=== PATIENT | male | born 1940 | race Caucasian/White ===

== ENCOUNTER 2018-12-13 14:09 | Inpatient (IN) ==
[2018-12-13 14:29] LABS: Hematocrit 27.1 % (37.5-50.1); Hemoglobin 8.2 g/dL (12.9-16.9); Mean Corpuscular HGB Conc 30.3 g/dL (31.6-35.5); Mean Corpuscular Volume 76.1 fL (83.0-100.0); Mean Platelet Volume 9.5 fL (9.4-12.4); Platelet Count 239 K/mcL (140-400); Red Blood Count 3.56 M/mcL (4.19-5.50); Red Cell Distribution Width 20.3 % (11.5-14.5); White Blood Count 16.8 K/mcL (4.3-11.1)
[2018-12-13 14:36] LABS: INR 1.4; Prothrombin Time 15.6 Seconds (9.4-12.1)
[2018-12-13 14:39] LABS: Activated Partial Thrombo Time 36.8 Seconds (26.0-36.0)
[2018-12-13 14:46] LABS: BUN/Creatinine Ratio 24 (6-26); Blood Urea Nitrogen 25 mg/dL (8-23); Calcium 8.4 mg/dL (8.6-10.3); Carbon Dioxide 24 mEq/L (23-29); Chloride 107 mEq/L (98-107); Glucose 112 mg/dL (70-105); Osmolality,Calculated 287 (280-300); Potassium 3.8 mEq/L (3.5-5.1); Sodium 136 mEq/L (136-145); eGFR For African Americans > 60 (> 60); eGFR For Non-African Americans > 60 (> 60)
[2018-12-13 14:47] LABS: Troponin I 0.03 ng/mL (< 0.04)
[2018-12-13] MEDS ORDERED: 0.9 % Sodium Chloride 1,000 ML IVC ONE (15:05)
[2018-12-13] MEDS ORDERED: Aspirin 81 MG TAB.CHEW PO ONE (15:05)
[2018-12-13] MEDS ORDERED: Isovue-370 500 ML BOTTLE IVP ONE (15:16)
[2018-12-13] MEDS ORDERED: Azithromycin 500 MG in 0.9 % Sodium Chloride 250 ML IVPB ONE (16:46)
[2018-12-13] MEDS ORDERED: Piperacillin/Tazobactam 3.375 GM in Water for inj. (sterile) 20 ML IVP ONE (16:46)
[2018-12-13 17:14] LABS: Bilirubin,Urine Negative (Negative); Blood,Urine Large (Negative); Clarity,Urine Clear (Clear); Color,Urine Yellow (Yellow); Glucose,Urine (UA) Normal (Normal); Ketones,Urine Negative (Negative); Leukocyte Esterase,Urine Moderate (Negative); Nitrite,Urine Negative (Negative); Protein,Urine Negative (Neg-Trace); Specific Gravity,Urine 1.029 (1.010-1.025); Urobilinogen,Urine Normal (Normal)
[2018-12-13 17:16] LABS: Hyaline Casts,Urine None Seen per lpf (None-Few); RBC,Urine TNTC per hpf (0-3); Squamous Epithelial Cell,Urine Many per lpf (None-Few)
[2018-12-13 17:27] LABS: Bacteria,Urine Few per hpf (None-Few); Renal Epithelial Cells,Urine Few per hpf (None-Few)
[2018-12-13] MEDS ORDERED: cefTRIAXone 1,000 MG in Water for inj. (sterile) 10 ML IVP ONE (17:27)
[2018-12-13] MEDS ORDERED: Ondansetron 4 MG/2 ML VIAL IVP PRN (18:26)
[2018-12-13] MEDS ORDERED: Naloxone 0.4 MG/ML INJ IVP PRN (18:26)
[2018-12-13] MEDS ORDERED: diazePAM 10 MG/2 ML SYRINGE IVP STA ×2 (18:43→18:57)
[2018-12-13] MEDS ORDERED: diazePAM 10 MG/2 ML SYRINGE ONE (18:46)
[2018-12-13] MEDS ORDERED: Baclofen 10 MG TABLET PO ONE (19:22)
[2018-12-13] MEDS: Baclofen 10 MG TABLET PO SCH (21:07)
[2018-12-13] MEDS: Apixaban 2.5 MG TABLET PO SCH (21:07)
[2018-12-13] MEDS: Pregabalin 75 MG CAPSULE PO SCH (21:07)
[2018-12-13] MEDS: Fluticasone Propionate Nasal 50 MCG/SPRAY BOTTLE NS SCH (21:09)
[2018-12-13] MEDS: tiZANidine 4 MG TABLET PO SCH (21:17)
[2018-12-13] MEDS: 0.9 % Sodium Chloride 1,000 ML IVC SCH (21:17)
[2018-12-14] MEDS: Baclofen 10 MG TABLET PO SCH ×5 (00:10→23:59)
[2018-12-14] MEDS: Piperacillin/Tazobactam 3.375 GM in 0.9 % Sodium Chloride Mini Bag 100 ML IVPB SCH ×4 (00:11→23:59)
[2018-12-14] MEDS: tiZANidine 4 MG TABLET PO SCH ×3 (05:17→16:47)
[2018-12-14 06:53] LABS: Adenovirus Not Detected (Not Detect); Bordetella Pertussis Not Detected (Not Detect); Chlamydophila pneumoniae Not Detected (Not Detect); Coronavirus 229E Not Detected (Not Detect); Coronavirus HKU1 Not Detected (Not Detect); Coronavirus NL63 Not Detected (Not Detect); Coronavirus OC43 Not Detected (Not Detect); Human Metapneumovirus Not Detected (Not Detect); Human Rhinovirus/Enterovirus Not Detected (Not Detect); Influenza A Subtype 2009 H1 Not Detected (Not Detect); Influenza A Untypeable Not Detected (Not Detect); Influenza B Not Detected (Not Detect); Mycoplasma pneumoniae Not Detected (Not Detect); Parainfluenza Virus 1 Not Detected (Not Detect); Parainfluenza Virus 2 Not Detected (Not Detect); Parainfluenza Virus 3 Not Detected (Not Detect); Parainfluenza Virus 4 Not Detected (Not Detect); Respiratory Syncytial Virus Not Detected (Not Detect)
[2018-12-14 07:12] LABS: Basophils % 0.2 %; Eosinophils % 0.2 %; Hematocrit 24.6 % (37.5-50.1); Hemoglobin 7.5 g/dL (12.9-16.9); Immature Granulocytes % 0.6 % (0-4); Lymphocytes # 0.7 K/mcL (0.6-4.6); Lymphocytes % 8.8 %; Mean Corpuscular HGB Conc 30.5 g/dL (31.6-35.5); Mean Corpuscular Hemoglobin 23.4 pg (28.0-33.3); Mean Corpuscular Volume 76.6 fL (83.0-100.0); Mean Platelet Volume 10.4 fL (9.4-12.4); Monocytes # 0.5 K/mcL (0.0-1.3); Monocytes % 6.2 %; Neutrophils # 7.1 K/mcL (1.6-8.9); Platelet Count 203 K/mcL (140-400); Red Blood Count 3.21 M/mcL (4.19-5.50); Red Cell Distribution Width 20.5 % (11.5-14.5)
[2018-12-14 07:30] LABS: BUN/Creatinine Ratio 24 (6-26); Blood Urea Nitrogen 20 mg/dL (8-23); Carbon Dioxide 24 mEq/L (23-29); Chloride 109 mEq/L (98-107); Glucose 84 mg/dL (70-105); Osmolality,Calculated 292 (280-300); Potassium 3.3 mEq/L (3.5-5.1); Sodium 140 mEq/L (136-145); eGFR For African Americans > 60 (> 60); eGFR For Non-African Americans > 60 (> 60)
[2018-12-14 07:32] LABS: White Blood Count 8.4 K/mcL (4.3-11.1)
[2018-12-14] MEDS: Simethicone 80 MG TAB.CHEW PO SCH ×3 (08:15→16:47)
[2018-12-14] MEDS: Apixaban 2.5 MG TABLET PO SCH ×2 (08:16→20:06)
[2018-12-14] MEDS: Sennosides 8.6 MG TABLET PO SCH (08:16)
[2018-12-14] MEDS: Loratadine 10 MG TABLET PO SCH (08:16)
[2018-12-14] MEDS: diazePAM 5 MG TABLET PO SCH (08:17)
[2018-12-14] MEDS: Pregabalin 75 MG CAPSULE PO SCH ×2 (08:18→20:06)
[2018-12-14] MEDS: cefTRIAXone 1,000 MG in Water for inj. (sterile) 10 ML IVP SCH (08:19)
[2018-12-14] MEDS: Bisacodyl 10 MG RECTAL SUPPOSITORY RC SCH (08:20)
[2018-12-14] MEDS: Fluticasone Propionate Nasal 50 MCG/SPRAY BOTTLE NS SCH ×2 (08:21→20:07)
[2018-12-14] MEDS: 0.9 % Sodium Chloride 1,000 ML IVC SCH (12:15)
[2018-12-14] MEDS ORDERED: Azithromycin 500 MG in 0.9 % Sodium Chloride 250 ML IVPB SCH (18:00)
[2018-12-14] MEDS: Acetaminophen 325 MG TABLET PO PRN (23:02)
[2018-12-15 05:08] LABS: Basophils % 0.3 %; Eosinophils # 0.2 K/mcL (0.0-0.6); Eosinophils % 2.6 %; Hematocrit 25.4 % (37.5-50.1); Hemoglobin 7.7 g/dL (12.9-16.9); Immature Granulocytes % 0.3 % (0-4); Lymphocytes # 1.4 K/mcL (0.6-4.6); Lymphocytes % 23.1 %; Mean Corpuscular HGB Conc 30.3 g/dL (31.6-35.5); Mean Corpuscular Hemoglobin 23.3 pg (28.0-33.3); Mean Corpuscular Volume 76.7 fL (83.0-100.0); Mean Platelet Volume 10.5 fL (9.4-12.4); Monocytes # 0.6 K/mcL (0.0-1.3); Monocytes % 10.2 %; Neutrophils # 3.9 K/mcL (1.6-8.9); Platelet Count 234 K/mcL (140-400); Red Blood Count 3.31 M/mcL (4.19-5.50); Red Cell Distribution Width 20.4 % (11.5-14.5); Segmented Neutrophils % 63.5 %; White Blood Count 6.2 K/mcL (4.3-11.1)
[2018-12-15 05:31] LABS: BUN/Creatinine Ratio 22 (6-26); Blood Urea Nitrogen 20 mg/dL (8-23); Calcium 8.2 mg/dL (8.6-10.3); Carbon Dioxide 21 mEq/L (23-29); Chloride 113 mEq/L (98-107); Glucose 85 mg/dL (70-105); Osmolality,Calculated 296 (280-300); Potassium 3.6 mEq/L (3.5-5.1); Sodium 142 mEq/L (136-145); eGFR For African Americans > 60 (> 60); eGFR For Non-African Americans > 60 (> 60)
[2018-12-15 05:38] LABS: Anisocytosis 1+ (Not Present); Hypochromasia Present (Not Present); Microcytosis Present (Not Present); Platelet Estimate Normal (Normal)
[2018-12-15] MEDS: Baclofen 10 MG TABLET PO SCH ×4 (05:38→23:32)
[2018-12-15] MEDS: tiZANidine 4 MG TABLET PO SCH ×2 (05:39→13:14)
[2018-12-15] MEDS: Piperacillin/Tazobactam 3.375 GM in 0.9 % Sodium Chloride Mini Bag 100 ML IVPB SCH (08:43)
[2018-12-15] MEDS: Simethicone 80 MG TAB.CHEW PO SCH ×3 (08:43→16:42)
[2018-12-15] MEDS: Fluticasone Propionate Nasal 50 MCG/SPRAY BOTTLE NS SCH (08:44)
[2018-12-15] MEDS: Bisacodyl 10 MG RECTAL SUPPOSITORY RC SCH (08:44)
[2018-12-15] MEDS: cefTRIAXone 1,000 MG in Water for inj. (sterile) 10 ML IVP SCH (08:44)
[2018-12-15] MEDS: Pregabalin 75 MG CAPSULE PO SCH ×2 (08:44→23:32)
[2018-12-15] MEDS: Apixaban 2.5 MG TABLET PO SCH ×2 (08:44→23:33)
[2018-12-15] MEDS: Loratadine 10 MG TABLET PO SCH (08:44)
[2018-12-15] MEDS: diazePAM 5 MG TABLET PO SCH (08:45)
[2018-12-15] MEDS: Sennosides 8.6 MG TABLET PO SCH (08:45)
[2018-12-15] MEDS: Acetaminophen 325 MG TABLET PO PRN (08:46)
[2018-12-15] MEDS ORDERED: Aminoglycoside Consult 1 EACH MC ONE (08:58)
[2018-12-15] MEDS: levoFLOXacin 750 MG/150 ML 750 MG/150 ML BAG IVPB SCH (11:25)
[2018-12-15] MEDS: Doxycycline 100 MG in 0.9 % Sodium Chloride Mini Bag 100 ML IVPB SCH (16:42)
[2018-12-15] MEDS ORDERED: diazePAM 2 MG TABLET PO SCH (21:00)
[2018-12-15] MEDS ORDERED: tiZANidine 4 MG TABLET PO SCH (21:00)
[2018-12-16] MEDS: Acetaminophen 325 MG TABLET PO PRN ×2 (03:29→21:10)
[2018-12-16] MEDS ORDERED: *HR* HYDROcodone/Acet 7.5/325 mg TABLET PO ONE (03:52)
[2018-12-16] MEDS: diazePAM 2 MG TABLET PO SCH ×2 (04:24→21:11)
[2018-12-16 06:27] LABS: Basophils % 0.5 %; Eosinophils # 0.2 K/mcL (0.0-0.6); Eosinophils % 3.2 %; Hematocrit 26.7 % (37.5-50.1); Immature Granulocytes % 0.4 % (0-4); Lymphocytes # 1.6 K/mcL (0.6-4.6); Lymphocytes % 28.2 %; Mean Corpuscular Hemoglobin 22.8 pg (28.0-33.3); Mean Corpuscular Volume 76.1 fL (83.0-100.0); Mean Platelet Volume 10.2 fL (9.4-12.4); Monocytes # 0.5 K/mcL (0.0-1.3); Monocytes % 8.5 %; Neutrophils # 3.3 K/mcL (1.6-8.9); Platelet Count 251 K/mcL (140-400); Red Blood Count 3.51 M/mcL (4.19-5.50); Red Cell Distribution Width 20.6 % (11.5-14.5); Segmented Neutrophils % 59.2 %; White Blood Count 5.6 K/mcL (4.3-11.1)
[2018-12-16] MEDS: Fluticasone Propionate Nasal 50 MCG/SPRAY BOTTLE NS SCH ×3 (06:28→21:20)
[2018-12-16] MEDS: Baclofen 10 MG TABLET PO SCH ×3 (06:37→17:38)
[2018-12-16] MEDS: Doxycycline 100 MG in 0.9 % Sodium Chloride Mini Bag 100 ML IVPB SCH ×2 (06:37→17:38)
[2018-12-16 06:47] LABS: BUN/Creatinine Ratio 17 (6-26); Blood Urea Nitrogen 14 mg/dL (8-23); Calcium 8.5 mg/dL (8.6-10.3); Carbon Dioxide 23 mEq/L (23-29); Chloride 110 mEq/L (98-107); Glucose 90 mg/dL (70-105); Osmolality,Calculated 296 (280-300); Sodium 143 mEq/L (136-145); eGFR For African Americans > 60 (> 60); eGFR For Non-African Americans > 60 (> 60)
[2018-12-16] MEDS: Bisacodyl 10 MG RECTAL SUPPOSITORY RC SCH (08:32)
[2018-12-16] MEDS: Sennosides 8.6 MG TABLET PO SCH (08:32)
[2018-12-16] MEDS: Loratadine 10 MG TABLET PO SCH (08:33)
[2018-12-16] MEDS: Simethicone 80 MG TAB.CHEW PO SCH ×3 (08:39→17:38)
[2018-12-16] MEDS: Apixaban 2.5 MG TABLET PO SCH ×2 (08:39→21:11)
[2018-12-16] MEDS: levoFLOXacin 750 MG/150 ML 750 MG/150 ML BAG IVPB SCH (08:39)
[2018-12-16] MEDS: Pregabalin 75 MG CAPSULE PO SCH ×2 (08:40→21:09)
[2018-12-16] MEDS ORDERED: cefTRIAXone 1,000 MG in 0.9 % Sodium Chloride Mini Bag 100 ML IVPB SCH (09:00)
[2018-12-17] MEDS: Latanoprost 2.5 ML BOTTLE BOTH EYES SCH ×2 (00:17→20:48)
[2018-12-17] MEDS: Baclofen 10 MG TABLET PO SCH ×5 (00:18→23:11)
[2018-12-17] MEDS: Doxycycline 100 MG in 0.9 % Sodium Chloride Mini Bag 100 ML IVPB SCH (05:41)
[2018-12-17 06:19] LABS: Basophils % 0.6 %; Eosinophils # 0.2 K/mcL (0.0-0.6); Eosinophils % 3.2 %; Hemoglobin 8.3 g/dL (12.9-16.9); Immature Granulocytes % 1.6 % (0-4); Lymphocytes # 1.9 K/mcL (0.6-4.6); Lymphocytes % 38.3 %; Mean Corpuscular HGB Conc 30.7 g/dL (31.6-35.5); Mean Corpuscular Volume 74.8 fL (83.0-100.0); Mean Platelet Volume 9.9 fL (9.4-12.4); Monocytes # 0.5 K/mcL (0.0-1.3); Monocytes % 9.1 %; Neutrophils # 2.4 K/mcL (1.6-8.9); Platelet Count 264 K/mcL (140-400); Red Blood Count 3.61 M/mcL (4.19-5.50); Red Cell Distribution Width 19.9 % (11.5-14.5); Segmented Neutrophils % 47.2 %; White Blood Count 5.1 K/mcL (4.3-11.1)
[2018-12-17 06:37] LABS: BUN/Creatinine Ratio 16 (6-26); Blood Urea Nitrogen 16 mg/dL (8-23); Calcium 8.9 mg/dL (8.6-10.3); Carbon Dioxide 23 mEq/L (23-29); Chloride 110 mEq/L (98-107); Glucose 94 mg/dL (70-105); Osmolality,Calculated 295 (280-300); Potassium 3.6 mEq/L (3.5-5.1); Sodium 142 mEq/L (136-145); eGFR For African Americans > 60 (> 60); eGFR For Non-African Americans > 60 (> 60)
[2018-12-17] MEDS: Pregabalin 75 MG CAPSULE PO SCH ×2 (09:27→20:47)
[2018-12-17] MEDS: Loratadine 10 MG TABLET PO SCH (09:27)
[2018-12-17] MEDS: Apixaban 2.5 MG TABLET PO SCH ×2 (09:27→20:47)
[2018-12-17] MEDS: Simethicone 80 MG TAB.CHEW PO SCH ×3 (09:27→16:11)
[2018-12-17] MEDS: levoFLOXacin 750 MG TABLET PO SCH (09:27)
[2018-12-17] MEDS: Sennosides 8.6 MG TABLET PO SCH (09:27)
[2018-12-17] MEDS: Bisacodyl 10 MG RECTAL SUPPOSITORY RC SCH (09:28)
[2018-12-17] MEDS: levoFLOXacin 750 MG/150 ML 750 MG/150 ML BAG IVPB SCH (09:30)
[2018-12-17] MEDS: Fluticasone Propionate Nasal 50 MCG/SPRAY BOTTLE NS SCH ×2 (09:34→20:48)
[2018-12-17] MEDS: Acetaminophen 325 MG TABLET PO PRN ×2 (16:20→23:11)
[2018-12-17] MEDS: Doxycycline 100 MG CAPSULE PO SCH (17:46)
[2018-12-17] MEDS: diazePAM 2 MG TABLET PO SCH (20:47)
[2018-12-18 05:36] LABS: % Iron Saturation 5 % (20-55); Iron 19 mcg/dL (65-175); Transferrin 275 mg/dL (203-362)
[2018-12-18 05:42] LABS: Ferritin 16 ng/mL (20-250)
[2018-12-18] MEDS: Doxycycline 100 MG CAPSULE PO SCH (05:47)
[2018-12-18] MEDS: Baclofen 10 MG TABLET PO SCH ×2 (05:47→12:00)
[2018-12-18] MEDS: Sennosides 8.6 MG TABLET PO SCH (08:42)
[2018-12-18] MEDS: levoFLOXacin 750 MG TABLET PO SCH (08:42)
[2018-12-18] MEDS: Apixaban 2.5 MG TABLET PO SCH (08:42)
[2018-12-18] MEDS: Loratadine 10 MG TABLET PO SCH (08:43)
[2018-12-18] MEDS: Simethicone 80 MG TAB.CHEW PO SCH ×2 (08:43→12:00)
[2018-12-18] MEDS: Acetaminophen 325 MG TABLET PO PRN (08:43)
[2018-12-18] MEDS: Pregabalin 75 MG CAPSULE PO SCH (08:43)
[2018-12-18] MEDS: Bisacodyl 10 MG RECTAL SUPPOSITORY RC SCH (08:43)
[2018-12-18] MEDS: Fluticasone Propionate Nasal 50 MCG/SPRAY BOTTLE NS SCH (08:44)
[2018-12-18 11:43] VITALS: BP 134/62
== END 2018-12-18 14:43 | DRG 69 ==
LOC: EMEROOARM 14:09 → 2ANU 14:09 → SUATTDRO 18:02 → 2ANU 18:39 → SUATTDRO 12-15 15:26
PROVIDERS: ADMIT Internal Medicine; ATTEND Internal Medicine

== ENCOUNTER 2019-05-10 17:05 | Observation (INO) ==
[2019-05-10 18:54] LABS: Basophils % 0.4 %; Eosinophils % 0.2 %; Hematocrit 37.9 % (37.5-50.1); Hemoglobin 12.3 g/dL (12.9-16.9); Immature Granulocytes % 0.6 % (0-4); Lymphocytes % 19.5 %; Mean Corpuscular HGB Conc 32.5 g/dL (31.6-35.5); Mean Corpuscular Hemoglobin 31.2 pg (28.0-33.3); Mean Corpuscular Volume 96.2 fL (83.0-100.0); Mean Platelet Volume 10.9 fL (9.4-12.4); Monocytes # 0.5 K/mcL (0.0-1.3); Monocytes % 9.1 %; Neutrophils # 3.6 K/mcL (1.6-8.9); Platelet Count 154 K/mcL (140-400); Red Blood Count 3.94 M/mcL (4.19-5.50); Red Cell Distribution Width 15.5 % (11.5-14.5); Segmented Neutrophils % 70.2 %; White Blood Count 5.1 K/mcL (4.3-11.1)
[2019-05-10 18:57] LABS: INR 1.7; Prothrombin Time 18.8 Seconds (9.4-12.1)
[2019-05-10 19:00] LABS: Activated Partial Thrombo Time 39.7 Seconds (26.0-36.0)
[2019-05-10 19:12] LABS: Alanine Aminotransferase 10 Units/L (7-52); Albumin 3.7 g/dL (3.5-5.7); Albumin/Globulin Ratio 1.5 (1.1-2.2); Alkaline Phosphatase 49 Units/L (34-104); Aspartate Amino Transferase 14 Units/L (13-39); BUN/Creatinine Ratio 33 (6-26); Bilirubin,Total 0.5 mg/dL (0.3-1.0); Blood Urea Nitrogen 25 mg/dL (8-23); Calcium 8.6 mg/dL (8.6-10.3); Carbon Dioxide 29 mEq/L (23-29); Chloride 108 mEq/L (98-107); Globulin 2.4 g/dL (2.4-3.5); Glucose 107 mg/dL (70-105); Osmolality,Calculated 299 (280-300); Potassium 3.7 mEq/L (3.5-5.1); Sodium 142 mEq/L (136-145); Total Protein 6.1 g/dL (6.4-8.9); eGFR For African Americans > 60 (> 60); eGFR For Non-African Americans > 60 (> 60)
[2019-05-10 19:48] LABS: Bilirubin,Urine Negative (Negative); Blood,Urine Negative (Negative); Clarity,Urine Clear (Clear); Color,Urine Yellow (Yellow); Glucose,Urine (UA) Normal (Normal); Ketones,Urine Negative (Negative); Leukocyte Esterase,Urine Negative (Negative); Nitrite,Urine Negative (Negative); Protein,Urine Negative (Neg-Trace); Specific Gravity,Urine 1.026 (1.010-1.025); Urobilinogen,Urine Normal (Normal)
[2019-05-10] MEDS ORDERED: Pantoprazole 40 MG VIAL IVP ONE (20:24)
[2019-05-10] MEDS ORDERED: Naloxone 0.4 MG/ML INJ IVP PRN (20:33)
[2019-05-10] MEDS ORDERED: Ondansetron 4 MG/2 ML VIAL IVP PRN (20:33)
[2019-05-10] MEDS ORDERED: Acetaminophen 325 MG TABLET PO PRN (21:32)
[2019-05-10] MEDS ORDERED: Bisacodyl 10 MG RECTAL SUPPOSITORY RC PRN (21:32)
[2019-05-10] MEDS ORDERED: MOM Conc 10 ML UD.LIQ PO PRN (21:32)
[2019-05-10] MEDS: Ringers Solution, Lactated 1,000 ML IVC SCH (22:12)
[2019-05-10] MEDS: tiZANidine 4 MG TABLET PO SCH (22:12)
[2019-05-11 00:41] LABS: Basophils % 0.5 %; Eosinophils % 0.7 %; Hematocrit 35.5 % (37.5-50.1); Hemoglobin 11.5 g/dL (12.9-16.9); Immature Granulocytes % 0.5 % (0-4); Lymphocytes # 1.1 K/mcL (0.6-4.6); Mean Corpuscular HGB Conc 32.4 g/dL (31.6-35.5); Mean Corpuscular Hemoglobin 30.7 pg (28.0-33.3); Mean Corpuscular Volume 94.7 fL (83.0-100.0); Mean Platelet Volume 11.9 fL (9.4-12.4); Monocytes # 0.4 K/mcL (0.0-1.3); Monocytes % 9.6 %; Neutrophils # 2.7 K/mcL (1.6-8.9); Platelet Count 157 K/mcL (140-400); Red Blood Count 3.75 M/mcL (4.19-5.50); Red Cell Distribution Width 15.5 % (11.5-14.5); Segmented Neutrophils % 63.7 %; White Blood Count 4.3 K/mcL (4.3-11.1)
[2019-05-11 01:01] LABS: BUN/Creatinine Ratio 33 (6-26); Blood Urea Nitrogen 23 mg/dL (8-23); Calcium 8.4 mg/dL (8.6-10.3); Carbon Dioxide 28 mEq/L (23-29); Chloride 110 mEq/L (98-107); Glucose 99 mg/dL (70-105); Magnesium 1.7 mg/dL (1.6-2.6); Osmolality,Calculated 298 (280-300); Potassium 3.5 mEq/L (3.5-5.1); Sodium 142 mEq/L (136-145); eGFR For African Americans > 60 (> 60); eGFR For Non-African Americans > 60 (> 60)
[2019-05-11] MEDS: diazePAM 5 MG TABLET PO PRN ×2 (03:15→15:06)
[2019-05-11] MEDS: Pantoprazole 40 MG VIAL IVP SCH ×2 (06:11→20:41)
[2019-05-11 08:42] LABS: Hematocrit 36.9 % (37.5-50.1)
[2019-05-11 09:41] LABS: INR 1.3; Prothrombin Time 14.8 Seconds (9.4-12.1)
[2019-05-11] MEDS: Loratadine 10 MG TABLET PO SCH (10:00)
[2019-05-11] MEDS: Simethicone 80 MG TAB.CHEW PO SCH ×3 (10:00→20:40)
[2019-05-11] MEDS: Baclofen 10 MG TABLET PO SCH ×4 (10:00→21:57)
[2019-05-11] MEDS: Artificial Tears SOLN 15 ML BOTTLE BOTH EYES SCH ×4 (10:00→21:58)
[2019-05-11] MEDS: tiZANidine 4 MG TABLET PO SCH ×3 (10:00→21:57)
[2019-05-11] MEDS: Pregabalin 75 MG CAPSULE PO SCH ×2 (10:00→21:57)
[2019-05-11] MEDS: Fluticasone Propionate Nasal 50 MCG/SPRAY BOTTLE NS SCH ×2 (10:09→21:58)
[2019-05-11] MEDS ORDERED: *HR* Propofol 200 MG/20 ML VIAL IVP ONE ×2 (12:03→12:04)
[2019-05-11] MEDS: Ringers Solution, Lactated 1,000 ML IVC SCH (15:09)
[2019-05-11] MEDS: amLODIPine 5 MG TABLET PO SCH (17:18)
[2019-05-11] MEDS ORDERED: Latanoprost 2.5 ML BOTTLE BOTH EYES SCH (21:00)
[2019-05-12] MEDS ORDERED: Mag Hydrox/Al Hydrox/Simeth 30 ML UDC PO PRN (00:24)
[2019-05-12 05:09] LABS: Basophils % 0.5 %; Eosinophils # 0.1 K/mcL (0.0-0.6); Eosinophils % 1.4 %; Hemoglobin 11.2 g/dL (12.9-16.9); Immature Granulocytes % 0.5 % (0-4); Lymphocytes # 1.8 K/mcL (0.6-4.6); Lymphocytes % 30.2 %; Mean Corpuscular HGB Conc 32.9 g/dL (31.6-35.5); Mean Corpuscular Hemoglobin 30.5 pg (28.0-33.3); Mean Corpuscular Volume 92.6 fL (83.0-100.0); Mean Platelet Volume 11.2 fL (9.4-12.4); Monocytes # 0.7 K/mcL (0.0-1.3); Monocytes % 12.8 %; Neutrophils # 3.2 K/mcL (1.6-8.9); Platelet Count 151 K/mcL (140-400); Red Blood Count 3.67 M/mcL (4.19-5.50); Red Cell Distribution Width 14.8 % (11.5-14.5); Segmented Neutrophils % 54.6 %; White Blood Count 5.8 K/mcL (4.3-11.1)
[2019-05-12] MEDS: tiZANidine 4 MG TABLET PO SCH (05:10)
[2019-05-12] MEDS: Pantoprazole 40 MG VIAL IVP SCH (05:10)
[2019-05-12 05:35] LABS: BUN/Creatinine Ratio 23 (6-26); Blood Urea Nitrogen 13 mg/dL (8-23); Calcium 8.4 mg/dL (8.6-10.3); Carbon Dioxide 26 mEq/L (23-29); Chloride 108 mEq/L (98-107); Glucose 80 mg/dL (70-105); Magnesium 1.6 mg/dL (1.6-2.6); Osmolality,Calculated 289 (280-300); Phosphorous 2.6 mg/dL (2.7-4.5); Potassium 3.3 mEq/L (3.5-5.1); Sodium 140 mEq/L (136-145); eGFR For African Americans > 60 (> 60); eGFR For Non-African Americans > 60 (> 60)
[2019-05-12] MEDS: Baclofen 10 MG TABLET PO SCH (08:55)
[2019-05-12] MEDS: amLODIPine 5 MG TABLET PO SCH (08:55)
[2019-05-12] MEDS: Simethicone 80 MG TAB.CHEW PO SCH (08:55)
[2019-05-12] MEDS: Loratadine 10 MG TABLET PO SCH (08:55)
[2019-05-12] MEDS: Pregabalin 75 MG CAPSULE PO SCH (08:55)
[2019-05-12] MEDS: Fluticasone Propionate Nasal 50 MCG/SPRAY BOTTLE NS SCH (09:01)
[2019-05-12] MEDS: Artificial Tears SOLN 15 ML BOTTLE BOTH EYES SCH (09:01)
[2019-05-12] MEDS ORDERED: amLODIPine 5 MG TABLET PO SCH (09:10)
[2019-05-12 10:34] VITALS: BP 116/61
== END 2019-05-12 12:52 ==
LOC: 3BNU 17:05 → EMEROOARM 17:05 → SUATTDRO 21:12 → 3BNU 21:48
PROVIDERS: ADMIT Internal Medicine; ATTEND Internal Medicine

== ENCOUNTER 2021-07-14 11:41 | Inpatient (IN) ==
[2021-07-14] MEDS ORDERED: 0.9 % Sodium Chloride 1,000 ML IVC ONE ×2 (11:51→14:08)
[2021-07-14] MEDS ORDERED: Ondansetron 4 MG/2 ML VIAL IVP ONE (12:02)
[2021-07-14] MEDS ORDERED: Ondansetron 4 MG/2 ML VIAL ONE (12:03)
[2021-07-14 12:20] LABS: Basophils % 0.2 %; Eosinophils % 0.1 %; Hematocrit 41.1 % (37.5-50.1); Immature Granulocytes % 0.6 % (0-4); Lymphocytes # 0.3 K/mcL (0.6-4.6); Lymphocytes % 2.9 %; Mean Corpuscular HGB Conc 34.1 g/dL (31.6-35.5); Mean Corpuscular Hemoglobin 32.6 pg (28.0-33.3); Mean Corpuscular Volume 95.6 fL (83.0-100.0); Mean Platelet Volume 12.1 fL (9.4-12.4); Monocytes # 0.4 K/mcL (0.0-1.3); Monocytes % 3.8 %; Neutrophils # 9.2 K/mcL (1.6-8.9); Platelet Count 149 K/mcL (140-400); Red Cell Distribution Width 13.2 % (11.5-14.5); Segmented Neutrophils % 92.4 %
[2021-07-14 12:25] LABS: VBG HCO3 24 mEq/L (21-27); VBG PCO2 33 mmHg (41-51); VBG PH 7.46 pH Units (7.32-7.42); VBG PO2 82 mmHg (25-50)
[2021-07-14 12:28] LABS: INR 1.4; Prothrombin Time 15.4 Seconds (9.4-12.1)
[2021-07-14 12:30] LABS: Activated Partial Thrombo Time 34.5 Seconds (26.0-36.0)
[2021-07-14 12:41] LABS: Alanine Aminotransferase 13 Units/L (7-52); Albumin 3.8 g/dL (3.5-5.7); Albumin/Globulin Ratio 1.5 (1.1-2.2); Alkaline Phosphatase 51 Units/L (34-104); Aspartate Amino Transferase 18 Units/L (13-39); BUN/Creatinine Ratio 16 (6-26); Bilirubin,Direct 0.1 mg/dL (0.0-0.2); Bilirubin,Indirect 0.7 mg/dL (0.0-1.0); Bilirubin,Total 0.8 mg/dL (0.3-1.0); Blood Urea Nitrogen 18 mg/dL (8-23); Calcium 8.8 mg/dL (8.6-10.3); Carbon Dioxide 25 mEq/L (23-29); Chloride 105 mEq/L (98-107); Globulin 2.6 g/dL (2.4-3.5); Glucose 109 mg/dL (70-105); Lipase 9 Units/L (11-82); Magnesium 1.6 mg/dL (1.6-2.6); Osmolality,Calculated 284 (280-300); Potassium 3.9 mEq/L (3.5-5.1); Sodium 136 mEq/L (136-145); Total Protein 6.4 g/dL (6.4-8.9); Troponin I 0.03 ng/mL (< 0.04); eGFR For African Americans > 60 (> 60); eGFR For Non-African Americans > 60 (> 60)
[2021-07-14 13:51] LABS: Bacteria,Urine Few per hpf (None-Few); Bilirubin,Urine Negative (Negative); Blood,Urine Large (Negative); Clarity,Urine Ex.Turbid (Clear); Color,Urine Yellow (Yellow); Glucose,Urine (UA) Normal (Normal); Hyaline Casts,Urine Few per lpf (None Seen); Ketones,Urine Negative (Negative); Leukocyte Esterase,Urine Large (Negative); Mucus,Urine Few per lpf (None-Few); Nitrite,Urine Negative (Negative); PH,Urine 6.5 pH Units (5.0-8.0); Protein,Urine 100 mg/dL (Neg-Trace); RBC,Urine TNTC per hpf (0-3); Renal Epithelial Cells,Urine Few per hpf (None-Few); Specific Gravity,Urine 1.016 (1.010-1.025); Sperm,Urine Present per hpf (None Seen); Transitional Epi Cells,Urine Few per hpf (None-Few); Urobilinogen,Urine Normal (Normal); WBC,Urine TNTC per hpf (0-3)
[2021-07-14] MEDS ORDERED: cefTRIAXone 1,000 MG in Water for inj. (sterile) 10 ML IVP ONE (13:55)
[2021-07-14] MEDS ORDERED: Naloxone 0.4 MG/ML INJ IVP PRN (14:07)
[2021-07-14] MEDS ORDERED: Ondansetron 4 MG/2 ML VIAL IVP PRN (14:07)
[2021-07-14] MEDS ORDERED: 0.9 % Sodium Chloride 1,000 ML IVC SCH (14:15)
[2021-07-14 14:51] LABS: Influenza A PCR Negative (Negative); Influenza B PCR Negative (Negative); Resp. Syncytial Virus PCR Negative (Negative)
[2021-07-14 15:07] LABS: SARS-CoV-2 by PCR (In House) Negative (Negative)
[2021-07-14] MEDS: 0.9 % Sodium Chloride 1,000 ML IVC SCH (20:57)
[2021-07-14] MEDS: Apixaban 5 MG TABLET PO SCH (20:59)
[2021-07-14] MEDS ORDERED: diazePAM 5 MG TABLET PO ONE (22:50)
[2021-07-14] MEDS: Baclofen 10 MG TABLET PO SCH (23:00)
[2021-07-15] MEDS: Piperacillin/Tazobactam 3.375 GM in 0.9 % Sodium Chloride Mini Bag 100 ML IVPB SCH ×5 (00:17→22:20)
[2021-07-15] MEDS: Latanoprost 2.5 ML BOTTLE BOTH EYES SCH ×2 (00:18→21:18)
[2021-07-15] MEDS: Acetaminophen 325 MG TABLET PO PRN ×2 (00:30→15:09)
[2021-07-15 01:25] LABS: A.calcoaceticus-baumannii cplx Not Detected (Not Detect); Bacteroides fragilis by PCR Not Detected (Not Detect); CTX-M ESBL Gene Not Detected (Not Detect); Enterococcus faecalis by PCR Not Detected (Not Detect); Enterococcus faecium by PCR Not Detected (Not Detect); IMP Carbapenem-Resist Gene Not Detected (Not Detect); NDM Carbapenem-Resist Gene Not Detected (Not Detect); OXA-48-like Carbap-Resist Gene Not Detected (Not Detect); Staph epidermidis by PCR Not Detected (Not Detect); Staph lugdunensis by PCR Not Detected (Not Detect); Staphylococcus aureus by PCR Not Detected (Not Detect); Staphylococcus by PCR Not Detected (Not Detect); Streptococcus agalactiae(B)PCR Not Detected (Not Detect); Streptococcus by PCR Not Detected (Not Detect); Streptococcus pneumoniae PCR Not Detected (Not Detect); Streptococcus pyogenes (A) PCR Not Detected (Not Detect); VIM Carbapenem-Resist Gene Not Detected (Not Detect); blaKPC Carbapenem-Resist Gene Not Detected (Not Detect); mcr-1 Colistin-Resist Gene Not Detected (Not Detect)
[2021-07-15 01:26] LABS: Candida albicans by PCR Not Detected (Not Detect); Candida auris by PCR Not Detected (Not Detect); Candida glabrata by PCR Not Detected (Not Detect); Candida krusei by PCR Not Detected (Not Detect); Candida parapsilosis by PCR Not Detected (Not Detect); Candida tropicalis by PCR Not Detected (Not Detect); Crypto. neoformans/gattii PCR Not Detected (Not Detect); Enterobacter cloacae Cmplx PCR Not Detected (Not Detect); Escherichia coli by PCR Not Detected (Not Detect); Klebs. pneumoniae group by PCR DETECTED (Not Detect); Klebsiella aerogenes by PCR Not Detected (Not Detect); Klebsiella oxytoca by PCR Not Detected (Not Detect); Proteus by PCR Not Detected (Not Detect); Pseudomonas aeruginosa by PCR Not Detected (Not Detect); Salmonella species by PCR Not Detected (Not Detect); Serratia marcescens by PCR Not Detected (Not Detect); Stenotrophomonas maltophilia Not Detected (Not Detect)
[2021-07-15 02:46] LABS: Basophils % 0.3 %; Hemoglobin 14.5 g/dL (12.9-16.9); Immature Granulocytes % 0.3 % (0-4); Lymphocytes # 0.7 K/mcL (0.6-4.6); Lymphocytes % 6.2 %; Mean Corpuscular Hemoglobin 31.7 pg (28.0-33.3); Mean Corpuscular Volume 96.3 fL (83.0-100.0); Mean Platelet Volume 12.2 fL (9.4-12.4); Monocytes # 0.2 K/mcL (0.0-1.3); Monocytes % 1.7 %; Neutrophils # 9.6 K/mcL (1.6-8.9); Platelet Count 140 K/mcL (140-400); Red Blood Count 4.57 M/mcL (4.19-5.50); Red Cell Distribution Width 13.5 % (11.5-14.5); Segmented Neutrophils % 91.5 %; White Blood Count 10.5 K/mcL (4.3-11.1)
[2021-07-15 02:59] LABS: BUN/Creatinine Ratio 18 (6-26); Blood Urea Nitrogen 19 mg/dL (8-23); Carbon Dioxide 25 mEq/L (23-29); Chloride 106 mEq/L (98-107); Glucose 113 mg/dL (70-105); Magnesium 1.7 mg/dL (1.6-2.6); Osmolality,Calculated 295 (280-300); Phosphorous 2.2 mg/dL (2.7-4.5); Potassium 3.9 mEq/L (3.5-5.1); Sodium 141 mEq/L (136-145); eGFR For African Americans > 60 (> 60); eGFR For Non-African Americans > 60 (> 60)
[2021-07-15] MEDS: Baclofen 10 MG TABLET PO SCH ×4 (06:48→22:19)
[2021-07-15] MEDS: 0.9 % Sodium Chloride 1,000 ML IVC SCH (06:49)
[2021-07-15] MEDS ORDERED: Nitroglycerin 1 INCH/GM PACKET TP PRN (07:08)
[2021-07-15] MEDS ORDERED: Sennosides/Docusate Sodium TABLET PO PRN (07:08)
[2021-07-15] MEDS ORDERED: Bisacodyl 10 MG RECTAL SUPPOSITORY RC PRN (07:08)
[2021-07-15] MEDS ORDERED: MICONAZOLE NITRATE TP PRN (07:08)
[2021-07-15] MEDS: Cholecalciferol (D-3) 1,000 UNIT (25MCG) TABLET PO SCH (08:29)
[2021-07-15] MEDS: Apixaban 5 MG TABLET PO SCH ×2 (08:29→21:15)
[2021-07-15] MEDS: Cyanocobalamin (B-12) 1,000 MCG TABLET PO SCH (08:29)
[2021-07-15] MEDS: Pregabalin 50 MG CAPSULE PO SCH ×2 (08:29→21:14)
[2021-07-15] MEDS: Finasteride 5 MG TABLET PO SCH (08:29)
[2021-07-15] MEDS: Simethicone 80 MG TAB.CHEW PO SCH ×3 (08:30→17:10)
[2021-07-15] MEDS: Fluticasone Propionate Nasal 50 MCG/SPRAY BOTTLE NS SCH ×2 (08:31→21:17)
[2021-07-15] MEDS: Loratadine 10 MG TABLET PO SCH (08:31)
[2021-07-15] MEDS: Dorzolamide OPTH 10 ML BOTTLE BOTH EYES SCH ×2 (08:32→21:17)
[2021-07-15] MEDS: diazePAM 5 MG TABLET PO SCH (08:32)
[2021-07-15] MEDS ORDERED: Loratadine 10 MG TABLET PO SCH (09:00)
[2021-07-15] MEDS: amLODIPine 5 MG TABLET PO SCH (12:30)
[2021-07-15] MEDS: Artificial Tears SOLN 15 ML BOTTLE BOTH EYES SCH ×2 (13:38→21:17)
[2021-07-15] MEDS: diazePAM 5 MG TABLET PO PRN ×2 (15:03→21:15)
[2021-07-15] MEDS ORDERED: *HR* Labetalol 20 MG/4 ML SYRINGE IVP PRN (16:20)
[2021-07-15] MEDS: Netarsudil Mesylate [Rhopressa] BOTH EYES SCH (21:17)
[2021-07-16] MEDS: Baclofen 10 MG TABLET PO SCH ×3 (06:12→17:26)
[2021-07-16] MEDS: Simethicone 80 MG TAB.CHEW PO SCH ×3 (07:30→17:26)
[2021-07-16] MEDS: Cyanocobalamin (B-12) 1,000 MCG TABLET PO SCH (07:30)
[2021-07-16] MEDS: diazePAM 5 MG TABLET PO SCH (07:30)
[2021-07-16] MEDS: Cholecalciferol (D-3) 1,000 UNIT (25MCG) TABLET PO SCH (07:30)
[2021-07-16] MEDS: Pregabalin 50 MG CAPSULE PO SCH ×2 (07:30→21:35)
[2021-07-16] MEDS: Piperacillin/Tazobactam 3.375 GM in 0.9 % Sodium Chloride Mini Bag 100 ML IVPB SCH (07:31)
[2021-07-16] MEDS: Loratadine 10 MG TABLET PO SCH (07:31)
[2021-07-16] MEDS: Finasteride 5 MG TABLET PO SCH (07:31)
[2021-07-16] MEDS: amLODIPine 5 MG TABLET PO SCH (07:31)
[2021-07-16] MEDS: Apixaban 5 MG TABLET PO SCH ×2 (07:31→21:35)
[2021-07-16] MEDS ORDERED: Perflutren Lipid Microsphere 1.3 ML in 0.9 % Sodium Chloride 8.7 ML IVP PRN (07:40)
[2021-07-16] MEDS: Artificial Tears SOLN 15 ML BOTTLE BOTH EYES SCH ×3 (07:42→21:35)
[2021-07-16] MEDS: Fluticasone Propionate Nasal 50 MCG/SPRAY BOTTLE NS SCH ×2 (07:42→21:36)
[2021-07-16] MEDS: Dorzolamide OPTH 10 ML BOTTLE BOTH EYES SCH ×2 (09:24→21:36)
[2021-07-16] MEDS: Cefepime HCl 2,000 MG in 0.9 % Sodium Chloride 10 ML IVP SCH ×2 (09:24→17:25)
[2021-07-16] MEDS: diazePAM 5 MG TABLET PO PRN (21:35)
[2021-07-16] MEDS: Netarsudil Mesylate [Rhopressa] BOTH EYES SCH (21:36)
[2021-07-16] MEDS: Latanoprost 2.5 ML BOTTLE BOTH EYES SCH (21:36)
[2021-07-17] MEDS: Baclofen 10 MG TABLET PO SCH ×6 (00:16→18:11)
[2021-07-17] MEDS: Cefepime HCl 2,000 MG in 0.9 % Sodium Chloride 10 ML IVP SCH ×2 (00:25→08:35)
[2021-07-17] MEDS: diazePAM 5 MG TABLET PO SCH (08:36)
[2021-07-17] MEDS: Finasteride 5 MG TABLET PO SCH (08:36)
[2021-07-17] MEDS: Simethicone 80 MG TAB.CHEW PO SCH ×3 (08:36→18:11)
[2021-07-17] MEDS: Cyanocobalamin (B-12) 1,000 MCG TABLET PO SCH (08:36)
[2021-07-17] MEDS: Cholecalciferol (D-3) 1,000 UNIT (25MCG) TABLET PO SCH (08:36)
[2021-07-17] MEDS: Loratadine 10 MG TABLET PO SCH (08:36)
[2021-07-17] MEDS: Dorzolamide OPTH 10 ML BOTTLE BOTH EYES SCH ×2 (08:37→20:58)
[2021-07-17] MEDS: Apixaban 5 MG TABLET PO SCH ×2 (08:37→20:58)
[2021-07-17] MEDS: Pregabalin 50 MG CAPSULE PO SCH ×2 (08:37→20:58)
[2021-07-17] MEDS: amLODIPine 5 MG TABLET PO SCH (08:37)
[2021-07-17] MEDS: Artificial Tears SOLN 15 ML BOTTLE BOTH EYES SCH ×3 (08:38→20:57)
[2021-07-17] MEDS: Fluticasone Propionate Nasal 50 MCG/SPRAY BOTTLE NS SCH ×2 (09:02→21:34)
[2021-07-17] MEDS: levoFLOXacin 750 MG TABLET PO SCH (11:34)
[2021-07-17] MEDS: Latanoprost 2.5 ML BOTTLE BOTH EYES SCH (20:58)
[2021-07-17] MEDS: Netarsudil Mesylate [Rhopressa] BOTH EYES SCH (21:01)
[2021-07-18] MEDS: Baclofen 10 MG TABLET PO SCH ×2 (00:16→06:03)
[2021-07-18] MEDS: Simethicone 80 MG TAB.CHEW PO SCH (08:03)
[2021-07-18] MEDS: amLODIPine 5 MG TABLET PO SCH (08:03)
[2021-07-18] MEDS: Pregabalin 50 MG CAPSULE PO SCH (08:03)
[2021-07-18] MEDS: Cholecalciferol (D-3) 1,000 UNIT (25MCG) TABLET PO SCH (08:03)
[2021-07-18] MEDS: Apixaban 5 MG TABLET PO SCH (08:04)
[2021-07-18] MEDS: Finasteride 5 MG TABLET PO SCH (08:04)
[2021-07-18] MEDS: levoFLOXacin 750 MG TABLET PO SCH (08:04)
[2021-07-18] MEDS: Cyanocobalamin (B-12) 1,000 MCG TABLET PO SCH (08:04)
[2021-07-18] MEDS: Loratadine 10 MG TABLET PO SCH (08:04)
[2021-07-18] MEDS: Artificial Tears SOLN 15 ML BOTTLE BOTH EYES SCH (08:05)
[2021-07-18] MEDS: Fluticasone Propionate Nasal 50 MCG/SPRAY BOTTLE NS SCH (08:06)
[2021-07-18] MEDS: Dorzolamide OPTH 10 ML BOTTLE BOTH EYES SCH (08:07)
[2021-07-18] MEDS: diazePAM 5 MG TABLET PO SCH (08:08)
[2021-07-18 10:21] VITALS: BP 113/64; PULSE 69; TEMP 97.5; O2SAT 100
[2021-07-18 11:40] LABS: Adenovirus Not Detected (Not Detect); Bordetella Pertussis Not Detected (Not Detect); Chlamydophila pneumoniae Not Detected (Not Detect); Coronavirus 229E Not Detected (Not Detect); Coronavirus HKU1 Not Detected (Not Detect); Coronavirus NL63 Not Detected (Not Detect); Coronavirus OC43 Not Detected (Not Detect); Human Metapneumovirus Not Detected (Not Detect); Human Rhinovirus/Enterovirus Not Detected (Not Detect); Influenza A Subtype 2009 H1 Not Detected (Not Detect); Influenza B Not Detected (Not Detect); Mycoplasma pneumoniae Not Detected (Not Detect); Parainfluenza Virus 1 Not Detected (Not Detect); Parainfluenza Virus 2 Not Detected (Not Detect); Parainfluenza Virus 3 Not Detected (Not Detect); Parainfluenza Virus 4 Not Detected (Not Detect); Respiratory Syncytial Virus Not Detected (Not Detect); SARS-CoV-2 Not Detected (Not Detect)
== END 2021-07-18 11:56 | DRG 872 ==
LOC: 2NNU 11:41 → EMEROOARM 11:41 → SUATTDRO 16:47 → 2NNU 18:04 → 2ANU 07-15 14:29
PROVIDERS: ADMIT Student in an Organized Health Care Education/Training Program; ATTEND Internal Medicine